=== PATIENT | female | born 1940 | race Caucasian/White ===

== ENCOUNTER → 2016-10-08 | Outpatient (CLI) | payer MEDICARE ==
[2016-10-08 14:06] LABS: BLOOD UREA NITROGEN 23 mg/dL (7-18)
== END | disposition home or self-care (01) ==
LOC: LAB 13:37
PROVIDERS: ATTEND Family Medicine
DX: I10 Essential (primary) hypertension (principal); J45.998 Other asthma; M85.9 Disorder of bone density and structure, unspecified
CPT/HCPCS: 36415; 80048; 82306

== ENCOUNTER → 2017-04-08 | Outpatient (CLI) | payer MEDICARE ==
[2017-04-08 16:01] LABS: T4 (THYROXINE) 9.8 mcg/dL (4.8-13.9); THYROID STIMULATING HORMONE 1.23 mIU/L (0.358-3.740)
== END ==
LOC: LAB 15:24
PROVIDERS: ATTEND Internal Medicine Cardiovascular Disease
DX: I48.0 Paroxysmal atrial fibrillation (principal)
CPT/HCPCS: 36415; 84436; 84443; 84481